=== PATIENT | female | born 1945 | race Caucasian/White ===

== ENCOUNTER 2020-04-19 19:56 | Emergency (ER) | payer OTHER ==
[~2020-04-19] VITALS: Ht 157.5 cm; Wt 86.2 kg
[2020-04-19] MEDS ORDERED: LIPITOR 20 MG T20 M1 PO (20:14)
[2020-04-19] MEDS ORDERED: TOPROL XL25 MG PO (20:14)
[2020-04-19] MEDS ORDERED: OMEPRAZOLE 20 M20 M1 PO (20:14)
[2020-04-19] MEDS ORDERED: ST. JOSEPH ASPI81 MG PO (20:15)
[2020-04-19] MEDS ORDERED: PHOSOMAX PO (20:16)
[2020-04-19] MEDS ORDERED: BREO ELLIPTA 11 EACH INH (20:16)
[2020-04-19] MEDS ORDERED: VITAMIN D310 MC4 PO (20:16)
[2020-04-19 20:42] LABS: URINE BILIRUBIN NEGATIVE (Negative); URINE BLOOD NEGATIVE (Negative); URINE CLARITY CLEAR; URINE COLOR YELLOW; URINE GLUCOSE-RANDOM NEGATIVE (Negative); URINE KETONES NEGATIVE (Negative); URINE LEUKOCYTES-REFLEX 1+ (Negative); URINE NITRITE-REFLEX NEGATIVE (Negative); URINE PROTEIN NEGATIVE (Negative); URINE SPECIFIC GRAVITY >= 1.030 (1.005-1.030); URINE UROBILINOGEN 0.2 E.U./dl (0.2-1.0)
[2020-04-19 20:52] LABS: MUCUS 4-6 Moderate strn/LPF (None Seen); SQUAMOUS >10 Many /LPF (0-3)
[2020-04-19 20:52] LABS: HEMATOCRIT 42.2 % (37.0-47.0); HEMOGLOBIN 13.9 gm/dL (12.0-15.0); MCH 27.9 pg (26.0-34.0); MCV 84.5 fL (80.0-100.0); MPV 6.9 fl. (7.2-11.1); NUCLEATED RBCS 0 /100WBC; PLATELET COUNT* 311 thou/uL (150-400); RDW-CV 14.2 % (10.5-14.5); WBC 11.1 thou/uL (4.0-11.0)
[2020-04-19 20:53] LABS: CASTS None Seen /LPF (None Seen); CRYSTALS None Seen /LPF (None Seen); URINE WBC-REFLEX 6-15 Few /HPF (0-5)
[2020-04-19 20:54] LABS: URINE RBC None Seen /HPF (0-2)
[2020-04-19 20:58] LABS: CALCIUM 9.1 mg/dL (8.5-10.1); CREATININE 0.9 mg/dL (0.6-1.3)
[2020-04-19 21:03] LABS: ALBUMIN 3.8 g/dL (3.4-5.0); TOTAL BILIRUBIN 0.4 mg/dL (<0.1-1.0); TOTAL PROTEIN 7.2 g/dL (6.4-8.2)
[2020-04-19 21:36] LABS: ABSOLUTE EOSINOPHILS 1.4 thou/uL (0.0-0.7); ABSOLUTE LYMPHOCYTES 2.9 thou/uL (0.8-5.3); ABSOLUTE MONOCYTES 0.3 thou/uL (0.0-1.2); ABSOLUTE NEUTROPHILS 6.4 thou/uL (1.6-8.1)
[2020-04-19 21:40] LABS: ANISOCYTOSIS Occasional; PLATELET ESTIMATE ADEQUATE
[2020-04-19] MEDS ORDERED: MACROBID 100 M100 MG PO (21:47)
[2020-04-19 22:16] VITALS: BP 179/73
== END 2020-04-19 22:17 | disposition home or self-care (01) ==
LOC: M.ERS 19:56
PROVIDERS: Physician Assistant
DX: G43.909 Migraine, unspecified, not intractable, without status migrainosus (principal); N39.0 Urinary tract infection, site not specified; H43.399 Other vitreous opacities, unspecified eye; I10 Essential (primary) hypertension; J45.909 Unspecified asthma, uncomplicated; Z90.49 Acquired absence of other specified parts of digestive tract; Z98.890 Other specified postprocedural states; Z79.899 Other long term (current) drug therapy; Z79.82 Long term (current) use of aspirin; Z88.5 Allergy status to narcotic agent